=== PATIENT | male | born 1990 | race Caucasian/White ===

== ENCOUNTER 2018-10-17 00:37 | Emergency (ER) | payer BC ==
[2018-10-17 00:48] VITALS: RESP 16; TEMP 98
[2018-10-17] MEDS ORDERED: MORPHINE SULFATE 4 MG/ML SYRINGE IVP STA (03:02)
[2018-10-17] MEDS ORDERED: ONDANSETRON 4 MG/2 ML VIAL IVP STA (03:02)
[2018-10-17 03:04] LABS: ALT 65 U/L (21-72); AST 51 U/L (17-59); Albumin 4.6 g/dL (3.5-5.0); Alkaline Phosphatase 81 U/L (38-126); Anion Gap 9 mmol/L; Blood Urea Nitrogen 22 mg/dL (9-20); Calcium 9.7 mg/dL (8.4-10.2); Carbon Dioxide 29 mmol/L (22-30); Chloride 100 mmol/L (98-107); Glucose 102 mg/dL (74-99); Sodium 138 mmol/L (137-145); Total Protein 7.5 g/dL (6.3-8.2)
[2018-10-17 03:11] LABS: Basophils # (A) 0.1 k/uL (0-0.2); Basophils % (A) 1 %; Eosinophils # (A) 0.2 k/uL (0-0.7); Eosinophils % (A) 1 %; HCT 42.8 % (39.0-53.0); HGB 14.5 gm/dL (13.0-17.5); Lymphocytes % (A) 17 %; MCV 88.2 fL (80.0-100.0); Monocytes # (A) 1.1 k/uL (0-1.0); Monocytes % (A) 9 %; Neutrophils # (A) 8.2 k/uL (1.3-7.7); Neutrophils % (A) 70 %; Platelet Count 296 k/uL (150-450); RBC 4.85 m/uL (4.30-5.90); RDW 12.3 % (11.5-15.5); WBC 11.8 k/uL (3.8-10.6)
--- NOTE | 2018-10-17 03:56 | CT ---
EXAMINATION TYPE: CT facial bones w con DATE OF EXAM: 10/17/2018 COMPARISON: None HISTORY: Patient presents with right sided facial swelling. Patient states denatal pain on right side . CT DLP: 346.3 mGycm Automated exposure control for dose reduction was used. CONTRAST: CT scan of the facial bones is performed with IV Contrast, patient injected with 85mL mL of Isovue 30 0. TECHNIQUE: CT scan of the sinuses is performed without contrast, axial images are obtained, coronal r eformatted images are also reviewed. FINDINGS: There is subcutaneous edema anterior to the right hemimandible. I see no discrete fluid col lection. The parotid glands are symmetric. The submandibular salivary glands are symmetric. Epiglotti s appears normal. There is no evidence of a pharyngeal mass. There is extensive mucosal thickening in the maxillary sinuses. Orbital margins are intact. Zygomatic arches appear normal. The maxilla is in tact. The mandibular ring is intact. I see no focal bone destruction. There are anterior triangle cer vical lymph nodes that measure up to 1.5 cm bilaterally. There is no evidence of an abscess. Epiglott is appears normal. IMPRESSION: There is subcutaneous edema over the right side of the face anterior to the mandible and maxilla consistent with cellulitis. Maxillary sinusitis. No drainable fluid collection. Mild anterior bilateral cervical lymphadenopathy.
[2018-10-17] MEDS ORDERED: AMOXIC-POT CLAV 875MG STARTER 2 EACH TABLET PO STA (04:08)
--- NOTE | 2018-10-17 04:11 | ED ---
General Adult HPI - General Chief complaint: ENT Stated complaint: Facial swelling Time Seen by Provider: 10/17/18 01:19 Source: patient, RN notes reviewed Mode of arrival: ambulatory Limitations: no limitations - History of Present Illness Initial comments: 27-year-old male presents to the emergency department for a chief complaint of right-sided facial swelling for the past few days. Patient states he saw his primary who wanted to order a CT of the sinuses patient has been congested with a cough over the past week. He also saw a dentist who wanted to do a root canal but was unable to complete the procedure and wants him to follow up with an barrel bander. Patient states that after the stent procedure the swelling worsened. Patient states that he was put on Keflex about 12 hours ago and has had 2 doses without improvement. He denies fevers or chills. He denies any pain with movement of the eye. He denies any difficulty opening the mouth. No neck stiffness. Patient has no other complaints at this time including shortness of breath, chest pain, abdominal pain, nausea or vomiting, headache, or visual changes. - Related Data Previous Rx's Medication Instructions Recorded Amoxicillin/Potassium Clav 1 tab PO Q12HR #20 tab 10/17/18 [Augmentin 875-125 Tablet] Allergies Allergy/AdvReac Type Severity Reaction Status Date / Time No Known Allergies Allergy Verified 10/17/18 02:06 Review of Systems ROS Statement: Those systems with pertinent positive or pertinent negative responses have been documented in the HPI. ROS Other: All systems not noted in ROS Statement are negative. Past Medical History Past Medical History: Hypertension History of Any Multi-Drug Resistant Organisms: None Reported Past Surgical History: Orthopedic Surgery Additional Past Surgical History / Comment(s): wisdom teeth, pins in right thumb Smoking Status: Never smoker Past Alcohol Use History: None Reported Past Drug Use History: None Reported General Exam Limitations: no limitations General appearance: alert, in no apparent distress Head exam: Present: atraumatic, normocephalic, normal inspection Eye exam: Present: normal appearance, PERRL, EOMI (Pain with movement of the eye ). Absent: scleral icterus, conjunctival injection, periorbital swelling (No edema noted periorbitally), periorbital tenderness ENT exam: Present: mucous membranes moist, TM's normal bilaterally, normal external ear exam, other (Edema noted right sided maxillary area, no significant erythema). Absent: normal oropharynx (Patient does have minimal tenderness noted in tooth 3 when biting on tongue blade.) Neck exam: Present: normal inspection, full ROM. Absent: tenderness, meningismus, lymphadenopathy Respiratory exam: Present: normal lung sounds bilaterally. Absent: respiratory distress, wheezes, rales, rhonchi, stridor Cardiovascular Exam: Present: regular rate, normal rhythm, normal heart sounds. Absent: systolic murmur, diastolic murmur, rubs, gallop, clicks Neurological exam: Present: alert, oriented X3, CN II-XII intact Psychiatric exam: Present: normal affect, normal mood Course Vital Signs 10/17/18 10/17/18 00:42 04:35 Temperature 98.0 F 98.0 F Pulse Rate 82 78 Respiratory 16 16 Rate Blood Pressure 169/107 143/78 O2 Sat by Pulse 99 99 Oximetry Medical Decision Making - Medical Decision Making 27-year-old with right-sided facial swelling for the past few days worsened today. Patient afebrile, vitals within acceptable limits. Exam does show moderate edema noted to the right maxillary area. CBC shows mild white count 11.8. CMP unremarkable. Spoke with artificial insemination technician Sim who spoke with radiologist on proper tests, recommends CT facial bones with contrast. CT shows subcutaneous edema over the right side of the face anterior to the mandible and maxilla consistent with cellulitis. Maxillary sinusitis noted. Patient given Augmentin. Offered IV antibiotics which patient declined stating he wants to go home. Discussed strictTake prescriptions as directed. Please follow-up with your primary care physician in 1 to 2 days. Please return to the Emergency Department if symptoms worsen or do not improve. . Discussed returning within 2 days if symptoms are not improving. Patient will follow up with primary care tomorrow. - Lab Data Result diagrams: 10/17/18 02:50 10/17/18 02:30 Lab Results 10/17/18 10/17/18 Range/Units 02:30 02:50 WBC 11.8 H (3.8-10.6) k/uL RBC 4.85 (4.30-5.90) m/uL Hgb 14.5 (13.0-17.5) gm/dL Hct 42.8 (39.0-53.0) % MCV 88.2 (80.0-100.0) fL MCH 30.0 (25.0-35.0) pg MCHC 34.0 (31.0-37.0) g/dL RDW 12.3 (11.5-15.5) % Plt Count 296 (150-450) k/uL Neutrophils % 70 % Lymphocytes % 17 % Monocytes % 9 % Eosinophils % 1 % Basophils % 1 % Neutrophils # 8.2 H (1.3-7.7) k/uL Lymphocytes # 2.0 (1.0-4.8) k/uL Monocytes # 1.1 H (0-1.0) k/uL Eosinophils # 0.2 (0-0.7) k/uL Basophils # 0.1 (0-0.2) k/uL Sodium 138 (137-145) mmol/L Potassium 4.0 (3.5-5.1) mmol/L Chloride 100 (98-107) mmol/L Carbon Dioxide 29 (22-30) mmol/L Anion Gap 9 mmol/L BUN 22 H (9-20) mg/dL Creatinine 1.04 (0.66-1.25) mg/dL Est GFR (CKD-EPI)AfAm >90 (>60 ml/min/1.73 sqM) Est GFR (CKD-EPI)NonAf >90 (>60 ml/min/1.73 sqM) Glucose 102 H (74-99) mg/dL Calcium 9.7 (8.4-10.2) mg/dL Total Bilirubin 1.0 (0.2-1.3) mg/dL AST 51 (17-59) U/L ALT 65 (21-72) U/L Alkaline Phosphatase 81 (38-126) U/L Total Protein 7.5 (6.3-8.2) g/dL Albumin 4.6 (3.5-5.0) g/dL Disposition Clinical Impression: Cellulitis, Maxillary sinusitis Disposition: HOME SELF-CARE Condition: Good Instructions: Cellulitis (ED), Sinusitis (ED) Additional Instructions: Please take antibiotic as directed. Please follow-up with primary care in 1-2 days for recheck. Return to the emergency department if you have worsening symptoms or symptoms are not improving. Prescriptions: Amoxicillin/Potassium Clav [Augmentin 875-125 Tablet] 1 tab PO Q12HR #20 tab Is patient prescribed a controlled substance at d/c from ED?: No Referrals: Tesfaye Juarez MD [Primary Care Provider] - 1-2 days Time of Disposition: 04:10
[2018-10-17] MEDS ORDERED: KETOROLAC 30 MG/ML 1 ML VIAL IVP STA (04:22)
[2018-10-17 04:36] VITALS: BP 143/78; PULSE 78
== END 2018-10-17 04:35 | disposition home or self-care (01) ==
LOC: EC 00:37
DX: J32.0 Chronic maxillary sinusitis (principal); L03.211 Cellulitis of face; Z53.29 Procedure and treatment not carried out because of patient's decision for other reasons
CPT/HCPCS: 36415; 80053; 85025; 70487; 99284; 96374; 96375 ×2; J2270; J2405; J1885; Q9967

== ENCOUNTER 2018-10-17 19:38 | Inpatient (IN) | payer BC ==
[2018-10-17] MEDS ORDERED: MORPHINE SULFATE 2 MG/ML SYRINGE IVP STA (21:23)
[2018-10-17] MEDS ORDERED: SODIUM CHLORIDE 0.9% 1,000 ML IV ONE (21:23)
[2018-10-17] MEDS ORDERED: ONDANSETRON 4 MG/2 ML VIAL IVP STA (21:24)
[2018-10-17] MEDS ORDERED: NALOXONE 0.4 MG/ML 1 ML VIAL IV PRN (21:35)
[2018-10-17] MEDS ORDERED: ACETAMINOPHEN TAB 325 MG TAB PO PRN (21:35)
--- NOTE | 2018-10-17 21:38 | ED ---
General Adult HPI - General Chief complaint: Skin/Abscess/Foreign Body Stated complaint: Facial swelling, revisit Time Seen by Provider: 10/17/18 20:42 Source: patient Mode of arrival: ambulatory Limitations: no limitations - History of Present Illness Initial comments: 27-year-old male past medical history of hypertension presenting today for chief complaint of worsening right facial swelling. Patient states that 2 days ago he had dental pain and sinus pressure. He was told that this may be related to dental infection and presented for evaluation at his dentist. He states x-rays were obtained revealing no findings concerning her dentist attempted to perform a root canal. He states this procedure was never performed , patient states he refused root canal that time. Patient states that they did inject and be given initial drilling however procedure was stopped. Patient states later that evening he began experiencing significant facial swelling and pain. He presents emergency department for evaluation early this morning where he was started on Augmentin after facial CT revealed significant sinusitis with facial cellulitis. Patient has strict return parameters for worsening symptoms. Patient states that he experienced rapid spread of infection over the course of the day. When pain and swelling increase he presented this evening for evaluation. Patient amidst the chills, denies fever. Patient admits to congestion and sinus pressure. Remainder of ROS negative, patient denies any recent shortness of breath, chest pain, back pain, abdominal pain, nausea or vomiting, numbness or tingling, dysuria or hematuria, constipation or diarrhea, or visual changes, or any other complaints. Upon arrival patient's blood pressure elevated, remainder of signs within acceptable limits. Patient is afebrile - Related Data Home Medications Medication Instructions Recorded Confirmed Atomoxetine HCl [Strattera] 60 mg PO DAILY 10/17/18 10/17/18 Fluticasone/Salmeterol [Advair 1 puff INHALATION RT-DAILY 10/17/18 10/17/18 250-50 Diskus] Multivitamins, Thera [Multivitamin 1 tab PO DAILY 10/17/18 10/17/18 (formulary)] amLODIPine BESYLATE/BENAZEPRIL 1 cap PO DAILY 10/17/18 10/17/18 [amLODIPine BESYLATE/BENAZEPRIL 5-20 mg] oxyCODONE-APAP 5-325MG [Percocet 1 tab PO Q6HR PRN 10/17/18 10/17/18 5-325 mg] Allergies Allergy/AdvReac Type Severity Reaction Status Date / Time No Known Allergies Allergy Verified 10/17/18 22:33 Review of Systems ROS Statement: Those systems with pertinent positive or pertinent negative responses have been documented in the HPI. ROS Other: All systems not noted in ROS Statement are negative. Past Medical History Past Medical History: Hypertension History of Any Multi-Drug Resistant Organisms: None Reported Past Surgical History: Orthopedic Surgery Additional Past Surgical History / Comment(s): wisdom teeth, pins in right thumb Past Psychological History: No Psychological Hx Reported Smoking Status: Never smoker Past Alcohol Use History: None Reported Past Drug Use History: None Reported General Exam - General Exam Comments Initial Comments: General: The patient is awake and alert, in no distress, and does not appear acutely ill. Eye: +3 mm upils are equal, round and reactive to light, extra-ocular movements are intact, no pain with extraocular eye movements. No nystagmus. There is normal conjunctiva bilaterally. No signs of icterus. Ears, nose, mouth and throat: There are moist mucous membranes and no oral lesions. Uvula midline, oropharynx nonerythematous Neck: The neck is supple, there is no tenderness or JVD. No anterior cervical lymphadenopathy. Significant tenderness to bilateral maxillary sinuses/face. Cardiovascular: There is a regular rate and rhythm. No murmur, rub or gallop is appreciated. Respiratory: Lungs are clear to auscultation, respirations are non-labored, breath sounds are equal. No wheezes, stridor, rales, or rhonchi. Gastrointestinal: Soft, non-distended, non-tender abdomen without masses or organomegaly noted. There is no rebound or guarding present. No CVA tenderness. Bowel sounds are unremarkable. Musculoskeletal: Normal ROM, no tenderness. Strength 5/5. Sensation intact. Pulses equal bilaterally 2+. Neurological: A&O x 3. CN II-XII intact, There are no obvious motor or sensory deficits. Coordination appears grossly intact. Speech is normal. Skin: Skin is warm and dry and no rashes or lesions are noted. Significant right-sided facial swelling with mild erythema. This extends towards right orbit. Psychiatric: Cooperative, appropriate mood & affect, normal judgment. Limitations: no limitations Course Vital Signs 10/17/18 10/17/18 10/17/18 20:19 22:38 23:00 Temperature 98.5 F 98.2 F 98.3 F Pulse Rate 78 65 Pulse Rate [ 76 Left] Respiratory 20 18 18 Rate Blood Pressure 167/109 144/86 Blood Pressure 155/92 [Left Arm] O2 Sat by Pulse 99 97 98 Oximetry Medical Decision Making - Medical Decision Making 27-year-old male with rapidly spreading facial cellulitis. Patient states he was on antibiotics as prescribed by dentist 2 days prior. He also was discharged with antibiotics Augmentin earlier this morning. Patient symptoms are worsening on 3 days total of antibiotic regimen. At this time I feel this outpatient feel treatment, with rapidly progressive facial cellulitis and underlying maxillary sinusitis. Patient does not appear toxic or septic at this time. Patient stable. Patient be started on Unasyn. Blood cultures pending. Mild increase in white blood cell count noted. Patient given fluid bolus and placed on maintenance fluid. Patient given Toradol, morphine for pain management. Patient admitted to Dr. Beard. ENT on consult. Discussed case with attending provider Dr. Jacobo who agreed with impression and plan. She is agreeable with admission, denies questions at this time. Patient transferred to the floor appearing well in stable condition - Lab Data Result diagrams: 10/17/18 21:40 10/17/18 21:40 Lab Results 10/17/18 10/17/18 Range/Units 21:40 21:40 WBC 11.3 H (3.8-10.6) k/uL RBC 5.27 (4.30-5.90) m/uL Hgb 16.6 (13.0-17.5) gm/dL Hct 45.8 (39.0-53.0) % MCV 86.9 (80.0-100.0) fL MCH 31.5 (25.0-35.0) pg MCHC 36.2 (31.0-37.0) g/dL RDW 12.2 (11.5-15.5) % Plt Count 288 (150-450) k/uL Neutrophils % 73 % Lymphocytes % 14 % Monocytes % 10 % Eosinophils % 2 % Basophils % 0 % Neutrophils # 8.2 H (1.3-7.7) k/uL Lymphocytes # 1.6 (1.0-4.8) k/uL Monocytes # 1.1 H (0-1.0) k/uL Eosinophils # 0.2 (0-0.7) k/uL Basophils # 0.0 (0-0.2) k/uL Sodium 140 (137-145) mmol/L Potassium 4.3 (3.5-5.1) mmol/L Chloride 102 (98-107) mmol/L Carbon Dioxide 29 (22-30) mmol/L Anion Gap 9 mmol/L BUN 22 H (9-20) mg/dL Creatinine 1.08 (0.66-1.25) mg/dL Est GFR (CKD-EPI)AfAm >90 (>60 ml/min/1.73 sqM) Est GFR (CKD-EPI)NonAf >90 (>60 ml/min/1.73 sqM) Glucose 102 H (74-99) mg/dL Calcium 9.7 (8.4-10.2) mg/dL Total Bilirubin 0.9 (0.2-1.3) mg/dL AST 46 (17-59) U/L ALT 56 (21-72) U/L Alkaline Phosphatase 80 (38-126) U/L Total Protein 7.5 (6.3-8.2) g/dL Albumin 4.5 (3.5-5.0) g/dL Disposition Clinical Impression: Failure of outpatient treatment, Sinusitis, Facial cellulitis Disposition: ADMITTED IP TO THIS [facility] Condition: Stable Is patient prescribed a controlled substance at d/c from ED?: No Time of Disposition: 21:38 Decision to Admit Reason: Admit from EC Decision Date: 10/17/18 Decision Time: 21:38
[2018-10-17] MEDS: SODIUM CHLORIDE 0.9% 1,000 ML IV SCH (21:51)
[2018-10-17 22:01] LABS: Basophils % (A) 0 %; Eosinophils # (A) 0.2 k/uL (0-0.7); Eosinophils % (A) 2 %; HCT 45.8 % (39.0-53.0); HGB 16.6 gm/dL (13.0-17.5); Lymphocytes # (A) 1.6 k/uL (1.0-4.8); Lymphocytes % (A) 14 %; MCH 31.5 pg (25.0-35.0); MCHC 36.2 g/dL (31.0-37.0); MCV 86.9 fL (80.0-100.0); Mean Platelet Volume 6.5; Monocytes # (A) 1.1 k/uL (0-1.0); Monocytes % (A) 10 %; Neutrophils # (A) 8.2 k/uL (1.3-7.7); Neutrophils % (A) 73 %; Platelet Count 288 k/uL (150-450); RBC 5.27 m/uL (4.30-5.90); RDW 12.2 % (11.5-15.5); WBC 11.3 k/uL (3.8-10.6)
[2018-10-17 22:13] LABS: ALT 56 U/L (21-72); AST 46 U/L (17-59); Albumin 4.5 g/dL (3.5-5.0); Alkaline Phosphatase 80 U/L (38-126); Anion Gap 9 mmol/L; Blood Urea Nitrogen 22 mg/dL (9-20); Calcium 9.7 mg/dL (8.4-10.2); Carbon Dioxide 29 mmol/L (22-30); Chloride 102 mmol/L (98-107); Glucose 102 mg/dL (74-99); Potassium 4.3 mmol/L (3.5-5.1); Sodium 140 mmol/L (137-145); Total Bilirubin 0.9 mg/dL (0.2-1.3); Total Protein 7.5 g/dL (6.3-8.2)
[2018-10-17 22:39] VITALS: RESP 18
[2018-10-17] MEDS ORDERED: KETOROLAC 30 MG/ML 1 ML VIAL IVP STA (22:41)
[2018-10-17] MEDS: AMPICILLIN-SULBACTAM 3 GM in SODIUM CHLORIDE 0.9% 100 ML IVPB SCH (23:53)
[2018-10-18 00:13] VITALS: BMI 28.3
[2018-10-18] MEDS: MORPHINE SULFATE 4 MG/ML SYRINGE IV PRN ×3 (01:36→10:35)
[2018-10-18] MEDS: IBUPROFEN 400 MG TAB PO PRN ×2 (06:04→11:48)
[2018-10-18] MEDS: AMPICILLIN-SULBACTAM 3 GM in SODIUM CHLORIDE 0.9% 100 ML IVPB SCH ×3 (06:06→17:16)
[2018-10-18] MEDS: ONDANSETRON 4 MG/2 ML VIAL IVP PRN (11:49)
[2018-10-18] MEDS: SODIUM CHLORIDE 0.9% 1,000 ML IV SCH (11:49)
--- NOTE | 2018-10-18 13:58 | P.GSCN ---
History of Present Illness Consult date: 10/18/18 Reason for Consult: Right facial swelling Requesting physician: Blake Beard History of present illness: This is a 27-year-old white male who last week started having some right cheek pain. This started specifically is to his pain to tooth #3. This patient about 10 years ago had a recurrent L performed on that right tooth. He's had intermittent pain on the right to his at times. It worsened and was seen by Dr. Juarez his primary care physician was placed on antibiotics and Percocet. The patient then saw Dr. Porras a dentist in [place]. X-rays were taken and she started and attempted a work canal on tooth #4. Unfortunately the pain was too great and the attempted root canal was aborted. The patient then came to the emergency room where he was admitted with facial cellulitis. He does have a history of nasal congestion and CAT scan performed show some sinus disease. He admits to nasal congestion and drainage but denies any sneezing lacrimation or itching. Review of Systems - Constitutional Reports anorexia, Reports fever, Reports lethargy, Reports night sweats, Denies chronic headaches, Denies poor appetite - EENT Ears, nose, mouth and throat: Reports dental pain, Reports neck fullness/ pressure, Reports post-nasal drip, Reports sinus pain, Reports swelling in mouth , Denies ant. neck pain, Denies nose pain, Denies odynophagia - Cardiovascular Denies chest pain - Respiratory Denies congestion - Gastrointestinal Denies abdominal pain - Genitourinary Denies flank pain - Musculoskeletal Denies atrophy - Integumentary Denies brittle nails - Neurological Denies aphasia - Psychiatric Reports change in appetite - Endocrine Denies cold intolerance - Hematologic/Lymphatic Denies easy bleeding - Allergic/Immunologic Reports allergic rhinitis Past Medical History Past Medical History: Hypertension History of Any Multi-Drug Resistant Organisms: None Reported Past Surgical History: Orthopedic Surgery Additional Past Surgical History / Comment(s): wisdom teeth, pins in right thumb Past Psychological History: No Psychological Hx Reported Smoking Status: Never smoker Past Alcohol Use History: None Reported Past Drug Use History: None Reported Medications and Allergies Home Medications Medication Instructions Recorded Confirmed Type Atomoxetine HCl [Strattera] 60 mg PO DAILY 10/17/18 10/17/18 History Fluticasone/Salmeterol [Advair 1 puff INHALATION RT-DAILY 10/17/18 10/17/18 History 250-50 Diskus] Multivitamins, Thera [Multivitamin 1 tab PO DAILY 10/17/18 10/17/18 History (formulary)] amLODIPine BESYLATE/BENAZEPRIL 1 cap PO DAILY 10/17/18 10/17/18 History [amLODIPine BESYLATE/BENAZEPRIL 5-20 mg] oxyCODONE-APAP 5-325MG [Percocet 1 tab PO Q6HR PRN 10/17/18 10/17/18 History 5-325 mg] Allergies Allergy/AdvReac Type Severity Reaction Status Date / Time No Known Allergies Allergy Verified 10/17/18 22:33 Surgical - Exam Osteopathic Statement: *. No significant issues noted on an osteopathic structural exam other than those noted in the History and Physical/Consult. Vital Signs Temp Pulse Resp BP Pulse Ox 98.5 F 78 20 167/109 99 10/17/18 20:19 10/17/18 20:19 10/17/18 20:19 10/17/18 20:19 10/17/18 20:19 - General Right face is swollen well developed, well nourished, moderate distress, moderate pain - Eyes PERRL, normal ocular movement - ENT Head is normocephalic the face is asymmetric the right face is swollen centered over the right cheek. Auricles are well-formed canals are clear nose is patent but swollen mouth and throat patient has tooth pain on tooth #3. Attempted root canal noted on tooth #4. Mouth and throat is unremarkable neck is unremarkable normal pinna, normal nares, normal mucosa, no hearing loss, no no congestion - Neck no masses, no bruits, trachea midline, no lymphadectomy - Respiratory normal expansion - Cardiovascular Rhythm: regular - Abdomen Abdomen: non tender - Integumentary no rash - Neurologic normal coordination, normal sensation - Musculoskeletal normal gait - Psychiatric oriented to time, oriented to person, oriented to place Results - Labs 10/17/18 21:40 10/17/18 21:40 Abnormal Lab Results - Last 24 Hours (Table) 10/17/18 10/17/18 Range/Units 21:40 21:40 WBC 11.3 H (3.8-10.6) k/uL Neutrophils # 8.2 H (1.3-7.7) k/uL Monocytes # 1.1 H (0-1.0) k/uL BUN 22 H (9-20) mg/dL Glucose 102 H (74-99) mg/dL Diabetes panel 10/17/18 Range/Units 21:40 Sodium 140 (137-145) mmol/L Potassium 4.3 (3.5-5.1) mmol/L Chloride 102 (98-107) mmol/L Carbon Dioxide 29 (22-30) mmol/L BUN 22 H (9-20) mg/dL Creatinine 1.08 (0.66-1.25) mg/dL Glucose 102 H (74-99) mg/dL Calcium 9.7 (8.4-10.2) mg/dL AST 46 (17-59) U/L ALT 56 (21-72) U/L Alkaline Phosphatase 80 (38-126) U/L Total Protein 7.5 (6.3-8.2) g/dL Albumin 4.5 (3.5-5.0) g/dL Calcium panel 10/17/18 Range/Units 21:40 Calcium 9.7 (8.4-10.2) mg/dL Albumin 4.5 (3.5-5.0) g/dL Pituitary panel 10/17/18 Range/Units 21:40 Sodium 140 (137-145) mmol/L Potassium 4.3 (3.5-5.1) mmol/L Chloride 102 (98-107) mmol/L Carbon Dioxide 29 (22-30) mmol/L BUN 22 H (9-20) mg/dL Creatinine 1.08 (0.66-1.25) mg/dL Glucose 102 H (74-99) mg/dL Calcium 9.7 (8.4-10.2) mg/dL Adrenal panel 10/17/18 Range/Units 21:40 Sodium 140 (137-145) mmol/L Potassium 4.3 (3.5-5.1) mmol/L Chloride 102 (98-107) mmol/L Carbon Dioxide 29 (22-30) mmol/L BUN 22 H (9-20) mg/dL Creatinine 1.08 (0.66-1.25) mg/dL Glucose 102 H (74-99) mg/dL Calcium 9.7 (8.4-10.2) mg/dL Total Bilirubin 0.9 (0.2-1.3) mg/dL AST 46 (17-59) U/L ALT 56 (21-72) U/L Alkaline Phosphatase 80 (38-126) U/L Total Protein 7.5 (6.3-8.2) g/dL Albumin 4.5 (3.5-5.0) g/dL Assessment and Plan (1) Dental infection Current Visit: Yes Status: Acute Code(s): K04.7 - PERIAPICAL ABSCESS WITHOUT SINUS SNOMED Code(s): 068232585 (2) Chronic sinusitis Current Visit: Yes Status: Acute Code(s): J32.9 - CHRONIC SINUSITIS, UNSPECIFIED SNOMED Code(s): 92826407 (3) Allergic rhinitis Current Visit: Yes Status: Acute Code(s): J30.9 - ALLERGIC RHINITIS, UNSPECIFIED SNOMED Code(s): 99054508 Plan: This patient's facial cellulitis appears to be secondary to an odontogenic etiology i.e. tooth #3. This tooth underwent a repeat L about 10 years ago and appears to have failed and appears to be the source of the dental infection. Unfortunately the previous dentist attempted a work canal and tooth #4 and I do not think that tooth #4 is the source of this infection. I'm recommending oral surgery consultation along with consideration of continued antibiotic therapy versus extraction versus implant. I will defer to the oral surgeon for that decision. The current antibiotic Unasyn is an excellent choice. Since this facial cellulitis is not secondary to a sinonasal etiology we'll no longer be following up with this patient. Thank you very much for allowing me to participate in the care of this patient. If I can be of any further service to you please do not hesitate to contact me.
--- NOTE | 2018-10-18 19:34 | CONS ---
CONSULTATION DATE OF CONSULTATION: 10/18/2018 CHIEF COMPLAINT: "My face is swollen." HISTORY OF PRESENT ILLNESS: The patient is a 27-year-old male who states that he had some dental pain approximately 5 days ago to the right maxillary region. He states that it slowly progressed, and approximately 2 days ago the swelling was significant and he was seen by his primary care physician and started on antibiotics and analgesics. The patient was then referred to Dr. Porras in [place]. He was examined and a root canal was attempted on tooth #4. The patient states that the area could not be numb enough for her to proceed with a root canal. The patient then presented to the ER, where he was evaluated and admitted with facial cellulitis and started on IV antibiotics. The patient states that he had a root canal to tooth #3 approximately 10 years ago and that he thinks that that tooth is the source of his problem. PAST MEDICAL HISTORY: His past medical history is significant for hypertension and ADD. MEDICATIONS: The patient's medications include: 1. Strattera. 2. Advair. 3. A multivitamin. 4. Amlodipine. 5. Percocet. ALLERGIES: NO KNOWN DRUG ALLERGIES. PAST SURGICAL HISTORY: His past surgical history is significant for the removal of his wisdom teeth and orthopedic surgery to his right thumb. SOCIAL HISTORY: The patient denies smoking or alcohol abuse or drug abuse. He denies any psychological history. REVIEW OF SYSTEMS: Review of systems reveals swelling of the right face in addition to pain. He denies any cardiovascular, respiratory, musculoskeletal, neurologic or psychiatric problems. He also denies having any blood dyscrasias, endocrine problems or GI/ problems. PHYSICAL EXAMINATION: Physical examination reveals the patient to be in no apparent distress. His vital signs are stable and he is alert and oriented x3. Head and neck exam reveals moderate soft tissue swelling of the right buccal space and cheek region. The area is mildly tender to palpation and it is mildly firm. There is no swelling in the cervical region. Intraoral examination reveals mild swelling of the maxillary right vestibule with sensitivity to percussion to tooth #3. There is no thyromegaly. The floor of mouth is soft with no pharyngeal swelling. LABORATORY RESULTS: Significant for a mild elevation of the white count at 11.3. His CT scan reveals mild maxillary sinus congestion and a root canal of tooth #3 with soft tissue swelling adjacent to the right maxillary sinus and maxilla. ASSESSMENT: Right buccal space abscess secondary to an odontogenic source, most likely tooth #3. PLAN: The patient is to continue IV antibiotics. Unasyn is a good choice. The patient is to apply heat to the area, with the head of the bed elevated at 30 degrees. The patient will be evaluated in 24 hours and most likely discharged tomorrow. The patient will then be seen as an outpatient in the office for the treatment of tooth #3. MMODL / IJN: [id number] /
[2018-10-18] MEDS: KETOROLAC 30 MG/ML 1 ML VIAL IVP SCH (20:13)
[2018-10-18] MEDS: LISINOPRIL 20 MG TAB PO SCH (20:18)
[2018-10-18] MEDS: ENOXAPARIN 40 MG/0.4 ML SYRINGE SQ SCH (20:18)
[2018-10-18] MEDS: amLODIPine 5 MG TAB PO SCH (20:18)
[2018-10-18] MEDS: Atomoxetine Hcl [Strattera] PO SCH (20:18)
--- NOTE | 2018-10-18 20:46 | HP ---
HISTORY AND PHYSICAL DATE OF ADMISSION: 10/17/2018 DATE OF SERVICE: 10/18/2018 PRESENTING COMPLAINT: Right face swelling. HISTORY OF PRESENTING COMPLAINT: This is a 27-year-old patient of Dr. Juarez I saw this morning. The patient had been feeling sick all week, then started having a toothache. Two days ago, he went and saw his family doctor. He was given steroids and antibiotics in the form of Keflex. He did not feel better. He was referred to his dentist. He went to the dentist, who tried to numb the right upper tooth, and it became very painful, to the point that the dentist said the patient would have to go and see another specialist. Since the pain became so severe, the patient decided to come to the ER after the right side of his face started swelling. There was fever and chills. Apparently the x-rays done at the dentist's office did not show any abscess. From the ER, Dr. Hammonds was consulted. I did put a consult in for Oral Faciomaxillary this morning after seeing the patient. Patient has no double vision. No headache. Logan somewhat better when I saw him this morning. REVIEW OF SYSTEMS: CONSTITUTIONAL: None. HEENT: Swelling of the right side of the face as above. RESPIRATORY: None. CARDIOVASCULAR: None. GASTROINTESTINAL: None. GENITOURINARY: None. MUSCULOSKELETAL: None. DERMATOLOGICAL: As above. LYMPHATICS: None. PSYCHIATRY: None. NEUROLOGICAL: None. PAST MEDICAL HISTORY: Hypertension. PAST SURGICAL HISTORY: Pins in the right thumb. SOCIAL HISTORY: Drinks about 6 beers 3 to 4 times a week. No smoking. Lives with his parents. 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 FAMILY HISTORY: Reviewed; noncontributory to presentation. HOME MEDICATIONS: 1. Multivitamin. 2. Percocet 5 one tablet q.6 p.r.n. 3. Amlodipine. 4. Benazepril 5/20 one tablet p.o. daily. 5. Advair 250/50 one puff daily. 6. Strattera 50 mg p.o. daily. ALLERGIES: NONE. PHYSICAL EXAMINATION: Temperature 98.3, pulse 58, respiration 18, blood pressure 148/82, pulse ox 96% on room air. GENERAL APPEARANCE: Average build. Sitting up. Not in distress. EYES: Pupils equal. Conjunctivae normal. HEENT: Swelling of the right side of the face. Tenderness on the right upper jaw line adjoining the tooth. NECK: JVD not raised. Mass not palpable. RESPIRATORY: Effort normal. Lungs are clear. CARDIOVASCULAR: First and second sounds normal. No edema. ABDOMEN: Soft, non-tender. Liver and spleen not palpable. LYMPHATIC: No lymph node palpable in neck or axillae. PSYCHIATRY: Alert and oriented x3. Mood and affect normal. NEUROLOGICAL: Pupils equal. Cranial nerves grossly intact. Power and sensation grossly intact. INVESTIGATIONS: White count 11.3, hemoglobin 16.6, potassium 4.3, BUN 22, creatinine 1.08. ASSESSMENT: 1. Possibly right upper jaw tooth abscess with adjoining soft tissue swelling and infection. 2. Right subcutaneous tissue cellulitis. PLAN: Patient was started on IV Unasyn in the ER, IV fluids. Dr. Hammonds was consulted. I also placed a consult for on-call Oral Maxillofacial. Care was discussed at length with the patient. Will start some NSAIDs in form of Toradol and discontinue the morphine. Lovenox for DVT prophylaxis. Other home medications will be resumed. Follow recommendations of above. MMODL / IJN: [id number] /
[2018-10-19] MEDS: KETOROLAC 30 MG/ML 1 ML VIAL IVP SCH ×3 (00:52→11:08)
[2018-10-19] MEDS: AMPICILLIN-SULBACTAM 3 GM in SODIUM CHLORIDE 0.9% 100 ML IVPB SCH ×3 (00:52→11:53)
[2018-10-19] MEDS: SODIUM CHLORIDE 0.9% 1,000 ML IV SCH ×2 (00:52→11:53)
[2018-10-19 06:29] VITALS: BP 113/62; PULSE 61; TEMP 98.2
[2018-10-19] MEDS ORDERED: SYMBICORT 80-4.5 MCG INHALER INHALATION SCH (08:00)
[2018-10-19] MEDS: ENOXAPARIN 40 MG/0.4 ML SYRINGE SQ SCH (08:42)
[2018-10-19] MEDS: Atomoxetine Hcl [Strattera] PO SCH (08:42)
[2018-10-19] MEDS: LISINOPRIL 20 MG TAB PO SCH (08:42)
[2018-10-19] MEDS: amLODIPine 5 MG TAB PO SCH (08:42)
--- NOTE | 2018-10-19 12:33 | CONS ---
CONSULTATION DATE OF CONSULT: 10/19/2018 SUBJECTIVE: Patient is feeling better. He has less pain and swelling to the right mid face. He is tolerating a soft diet and is in no apparent distress. OBJECTIVE: The patient is resting comfortably in bed. He is afebrile. His vital signs are stable. The swelling of the right midface is down substantially. The area is soft and minimally tender to palpation. The periorbital swelling has diminished significantly. Intraorally, there is no swelling of the maxillary vestibule on the right side. It does appear that tooth #5 have a vertical fracture as the source of his odontogenic infection. ASSESSMENT: Right buccal space infection that is improved considerably. PLAN: The patient can be discharged to home under p.o. antibiotics, I would recommend Augmentin. The patient was told to contact the office and follow up as an outpatient for the treatment of the offending tooth. A soft diet was suggested and the patient is to advance his diet as tolerated. He was to apply heat to the area and keep the head of the bed elevated 30 degrees. MMODL / IJN: [id number] /
[2018-10-19] MEDS: ONDANSETRON 4 MG/2 ML VIAL IVP PRN (13:21)
--- NOTE | 2018-10-20 07:42 | DS ---
DISCHARGE SUMMARY DATE OF ADMISSION: October 17, 2018. DATE OF DISCHARGE: October 19, 2018. FINAL DIAGNOSES: 1. Acute right-sided maxillary sinusitis with possible tooth infection. 2. Right subcutaneous tissue cellulitis. HOSPITAL COURSE: This patient presented with upper respiratory tract infection symptoms and pain in the right, did go to his dentist. Started having swelling in the right side of the face. Patient is felt to have acute sinusitis versus possible floor of the tooth abscess. Seen by Dr. Hammonds from ENT. Nothing further to add. Also seen by Dr. Horvath who will see the patient in the office. The patient was given IV antibiotics, NSAIDs to which he greatly responded. Care was discussed with the patient and mother today. All the questions were answered. Also cleared by Dr. Horvath to be discharged. PHYSICAL EXAMINATION: Temperature 98.2, pulse 51, respiratory 18, blood pressure 113/62, pulse ox 98% on room air. Right side of the face, swelling greatly improved. INVESTIGATIONS: None from today. DISCHARGE MEDICATIONS: 1. Strattera 60 mg p.o. daily. 2. Advair 250/50 one puff daily. 3. Multivitamin 1 tablet p.o. daily. 4. Amlodipine benazepril 5/21 capsule daily. 5. Percocet 5 one tablet q.6h p.r.n. 6. Augmentin 875 1 tablet p.o. q.12h 14 tablets. 7. Naproxen 250 mg p.o. b.i.d. Diet: Soft bland. FOLLOWUP: Follow up with Dr. Juarez in 1 week, follow up with Dr. Horvath in [address] Juarez. MMSOLEDADL / DEMONDN: [id number] /
== END 2018-10-19 15:05 | disposition home or self-care (01) | DRG 158 ==
LOC: EC 19:38 → 4MS4W 22:09
PROVIDERS: ADMIT Hospitalist; ATTEND Hospitalist
DX: K04.7 Periapical abscess without sinus (principal); L03.211 Cellulitis of face; J01.00 Acute maxillary sinusitis, unspecified; I10 Essential (primary) hypertension; J30.9 Allergic rhinitis, unspecified; Z79.899 Other long term (current) drug therapy
CPT/HCPCS: 36415; 80053; 85025; 87040; 96361; 96374; 96375; 99284

== ENCOUNTER 2019-03-30 15:36 | Emergency (ER) | payer BC ==
[2019-03-30 16:01] VITALS: BP 157/104; RESP 18; TEMP 98.2
[2019-03-30] MEDS ORDERED: IBUPROFEN 600 MG TAB PO STA (16:25)
[2019-03-30] MEDS ORDERED: hydrOXYzine HCL 25 MG TAB PO STA (16:25)
--- NOTE | 2019-03-30 16:28 | ED ---
Chest Pain HPI - General Chief Complaint: Chest Pain Stated Complaint: Chest pain Time Seen by Provider: 03/30/19 16:10 Source: patient Mode of arrival: ambulatory Limitations: no limitations - History of Present Illness Initial Comments: 28-year-old male presenting with left-sided chest and shoulder pain that began one month prior, is constant, is worsened with movement of his left arm, and is alleviated with Tylenol. Patient states he has a history of hypertension, however he is noncompliant with his medications due to him having normal blood pressures when he takes them at work. He admits to intermittent tobacco abuse, but denies any history of high cholesterol, stress testing, MA, family history of early MA. He denies any pain in his back or his abdomen. He also denies any family history of aortic dissection. The patient states she's also been struggling with anxiety and panic attacks that are untreated. He states this is a chronic problem for him that he has seen his PCP about, but has not received treatment. - Related Data Home Medications Medication Instructions Recorded Confirmed Atomoxetine HCl [Strattera] 60 mg PO DAILY 10/17/18 03/30/19 Fluticasone/Salmeterol [Advair 1 puff INHALATION RT-DAILY 10/17/18 03/30/19 250-50 Diskus] Multivitamins, Thera [Multivitamin 1 tab PO DAILY 10/17/18 03/30/19 (formulary)] amLODIPine BESYLATE/BENAZEPRIL 1 cap PO DAILY 10/17/18 03/30/19 [amLODIPine BESYLATE/BENAZEPRIL 5-20 MG] Previous Rx's Medication Instructions Recorded hydrOXYzine HCL [Atarax] 100 mg PO TID PRN #20 tab 03/30/19 Allergies Allergy/AdvReac Type Severity Reaction Status Date / Time No Known Allergies Allergy Verified 03/30/19 16:22 Review of Systems ROS Statement: Those systems with pertinent positive or pertinent negative responses have been documented in the HPI. Review of Systems Constitutional: Denies fever, chills Eyes: Denies change in vision, Denies pain Ears, nose, mouth, throat: Denies headaches, Denies sore throat Cardiovascular: Positive chest pain. Denies palpitations Respiratory: Denies shortness of breath, Denies cough Gastrointestinal: Denies abdominal pain. Denies nausea, vomiting, diarrhea. Genitourinary: Denies hematuria, Denies infections Musculoskeletal: Denies pain, Denies swelling Integumentary: Denies rash Neurological: Denies headache, focal weakness, focal numbness Psychiatric: Positive anxiety, Denies depression Hematologic/Lymphatic: Denies easy bleeding or bruising ROS Other: All systems not noted in ROS Statement are negative. EKG Findings - EKG Comments: EKG Findings:: EKG shows normal sinus rhythm at a rate of 65 bpm. WV interval 150 ms, QRS duration 88 ms, QT/QTC 390/[address] segment elevation, depression. No prolonged QT/QTc or WV interval. No dysrythmia noted. Past Medical History Past Medical History: Hypertension History of Any Multi-Drug Resistant Organisms: None Reported Past Surgical History: Orthopedic Surgery Additional Past Surgical History / Comment(s): wisdom teeth, pins in right thumb Past Psychological History: No Psychological Hx Reported Smoking Status: Never smoker Past Alcohol Use History: None Reported Past Drug Use History: None Reported General Exam - General Exam Comments Initial Comments: General: Awake, alert, No acute Distress HENT: Normocephalic. Atraumatic Eyes: PERRL. EOMI. No scleral icterus. No injected conjunctiva Neck: Full ROM Chest/Lungs: Clear to auscultation bilaterally. No wheezing, rhonchi, or rales Cardiac: Regular rate, rhythm. No murmurs or rubs. 2+ radial pulses Abdomen/GI: Soft, nontender, nondistended. No rebound, guarding, or rigidity. No abdominal bruit Musculoskeletal: Full ROM Skin: Warm, dry, intact Neurologic: A/Ox3, no weakness, no sensory deficit, no abnormal gait, no coordination deficit Limitations: no limitations Course Vital Signs 03/30/19 03/30/19 15:59 16:00 Temperature 98.2 F Pulse Rate 59 L Pulse Rate [ 74 Pharmacist In Charge Owner ] Respiratory 18 Rate Blood Pressure 157/104 O2 Sat by Pulse 98 Oximetry Chest Pain MDM - MDM 28-year-old male presenting with left arm pain and anxiety. Initial exam the patient is awake, alert, no acute distress. VSS. Patient is perc negative. His chest pain has been ongoing for a month and does not have any other anginal equivalents. At this insert general discharge time it is unlikely that his chest pain is cardiac in nature. His chest x-ray and left shoulder x-ray were unremarkable. His EKG was negative for acute process. Patient's symptoms improved while in the department. The patient was hypertensive in the emergency department, however he had no symptoms to suggest aortic pathology. Patient was given orthopedic follow-up for his chronic shoulder pain and given a short prescription of Atarax for his anxiety. He is instructed to follow-up with his primary care physician regarding his symptoms. No further emergent workup indicated. The patient was given return to ED instructions. They were instructed to follow up with their primary care provider. Stable for discharge at this time. Disposition Clinical Impression: Chest pain, Shoulder pain, Anxiety Disposition: HOME SELF-CARE Condition: Good Instructions (If sedation given, give patient instructions): Chest Pain (DC), Costochondritis (ED), Anxiety (ED), Shoulder Pain (ED) Prescriptions: hydrOXYzine HCL [Atarax] 100 mg PO TID PRN #20 tab PRN Reason: Anxiety Is patient prescribed a controlled substance at d/c from ED?: No Referrals: Tesfaye Juarez MD [Primary Care Provider] - 1-2 days Tank Meléndez PAC [PHYSICIAN PHARMACOGENETICIST] - 1-2 days
--- NOTE | 2019-03-30 16:42 | XR ---
EXAMINATION TYPE: XR shoulder complete LT DATE OF EXAM: 03/30/2019 COMPARISON: NONE HISTORY: Shoulder pain TECHNIQUE: 3 views FINDINGS: I see no fracture nor dislocation. Joint spaces are normal. There are no pathologic calcifi cations. IMPRESSION: Negative left shoulder exam.
--- NOTE | 2019-03-30 16:42 | XR ---
EXAMINATION TYPE: XR chest 2V DATE OF EXAM: 03/30/2019 COMPARISON: 09/20/2013 HISTORY: Chest pain TECHNIQUE: Frontal and lateral views of the chest are obtained. FINDINGS: Heart and mediastinum are normal. Lungs are clear. Diaphragm is normal. Bony thorax appear s normal. IMPRESSION: Normal chest. No change.
[2019-03-30 17:27] VITALS: PULSE 74
== END 2019-03-30 17:27 | disposition home or self-care (01) ==
LOC: EC 15:36
DX: R07.9 Chest pain, unspecified (principal); M25.512 Pain in left shoulder; F41.9 Anxiety disorder, unspecified; I10 Essential (primary) hypertension; Z79.51 Long term (current) use of inhaled steroids; Z79.899 Other long term (current) drug therapy
CPT/HCPCS: 71046; 93005; 99285